=== PATIENT | female | born 1940 | race Caucasian/White ===

== ENCOUNTER → 2018-04-21 09:44 | Outpatient (CLI) | payer MEDICARE, OTHER, SELFPAY ==
--- NOTE | 2018-04-21 | DI.MG.S_ITS ---
BILATERAL DIGITAL SCREENING MAMMOGRAM 3D/2D WITH CAD: 04/21/2018 CLINICAL: Routine screening. Family history of breast cancer. Comparison is made to exams dated: 03/30/2017 mammogram, 03/27/2016 mammogram - [facility], and 03/05/2015 mammogram - [facility]. The tissue of both breasts is heterogeneously dense. This may lower the sensitivity of mammography. Current study was also evaluated with a Computer Aided Detection (CAD) system. Bilateral breast implants are stable. No significant masses, calcifications, or other findings are seen in either breast. There has been no significant interval change. IMPRESSION: NEGATIVE There is no mammographic evidence of malignancy. A 1 year screening mammogram is recommended. This exam was interpreted at Station ID: [id number]. NOTE: For mammograms, a report in lay terms will be sent to the patient. Approximately 15% of breast malignancies will not be visualized mammographically. In the management of a palpable breast mass, a negative mammogram must not discourage biopsy of a clinically suspicious lesion. Electronically Signed By: Jorge correa/junior:04/21/2018 10:21:07 letter sent: Normal Exam ACR BI-RADS Category 1: Negative 3341F
== END ==
PROVIDERS: Family Provider Family Medicine; PCP Family Medicine; Visit Provider Family Medicine
DX: Z12.31 Encounter for screening mammogram for malignant neoplasm of breast (principal); Z80.3 Family history of malignant neoplasm of breast
CPT/HCPCS: 77063; 77067

== ENCOUNTER → 2018-05-30 06:49 | Outpatient (CLI) | payer MEDICARE, OTHER, SELFPAY ==
[2018-05-30 08:18] LABS: Add Manual Diff / Slide Review NO; Basophils Percent Auto 0.7 % (0-2); Eosinophils Percent Auto 3.3 % (2-4); Hematocrit 40.5 % (36-46); Hemoglobin 14.1 g/dL (12.0-16.0); Lymphocytes Percent Auto 35.1 % (25-40); Mean Corpuscular HGB Conc 34.8 % (30-36); Mean Corpuscular Hemoglobin 30.3 PG (26-34); Mean Corpuscular Volume 87.1 fL (80-100); Monocytes Percent Auto 11.4 % (3-14); Neutrophils Absolute Auto 2500 /uL (3000-5900); Neutrophils Percent Auto 49.5 % (50-75); Platelet Count 229 X10^3/uL (150-400); Red Blood Cell Count 4.65 X10^6/uL (4.0-5.2); Red Cell Distribution Width 13.4 % (11.6-14.8)
[2018-05-30 08:59] LABS: Alanine Aminotransferase 22 IU/L (9-52); Albumin 3.9 g/dL (3.5-5.0); Albumin Globulin Ratio 1.3 (1.0-2.8); Alkaline Phosphatase 66 U/L (38-126); Aspartate Aminotransferase 27 IU/L (14-36); BUN Creatinine Ratio 21.4 (6-22); Bilirubin Total 0.8 mg/dL (0.2-1.3); Blood Urea Nitrogen 15 mg/dL (7-17); Calcium 9.3 mg/dL (8.4-10.2); Carbon Dioxide 31 mmol/L (22-32); Chloride 100 mmol/L (98-107); Cholesterol 184 mg/dL (140-199); Estimated Glomerular Filt Rate > 60.0 mL/min (>60); Globulin 3.1 g/dL (1.7-4.1); Glucose 95 mg/dL (80-110); HDL Cholesterol 65 mg/dL (40-60); HEMOLYSIS < 15 (0-50); LDL Cholesterol Calculated 103 mg/dL (<100); Potassium 4.4 mmol/L (3.4-5.1); Sodium 139 mmol/L (137-145); Triglycerides 79 mg/dL (35-150)
[2018-05-30 09:27] LABS: Thyroid Stimulating Hormone 0.52 uIU/mL (0.47-4.68)
== END ==
PROVIDERS: PCP Family Medicine; Visit Provider Family Medicine
DX: E78.2 Mixed hyperlipidemia (principal)
CPT/HCPCS: 36415; 80053; 80061; 84443; 85025

== ENCOUNTER → 2018-10-27 10:39 | Outpatient (CLI) | payer MEDICARE, OTHER, SELFPAY ==
--- NOTE | 2018-10-27 11:59 | PM.TREADMILL ---
Cardiac Stress Test Report Referral & Results Date Patient Seen: 10/27/18 Requesting provider: Ashwini Richter Indication: Chest pain Rest ECG: Unremarkable Procedure Note: Today following both written and verbal informed consent, the patient was exercised according to a standard Trent protocol. The patient exercised for a total of 9 min 0 sec achieving a maximum heart rate of 150. Patient's maximum systolic blood pressure was 180. This was an estimated 10.1 MET's. There was a tremendous amount of motion artifact while patient was actively exercising. This made absolutely impossible to evaluate ST segments while patient was moving. Upon immediate cessation of activity there is no evidence of ST segment changes. It did take approximately 90 sec for the artifact to completely dissipate after patient was returned to a supine position on the gurney and there is still no evidence of ST segment changes at that point Patient had normal heart rate blood pressure response to exercise Functional aerobic impairment was way way off the scale estimate her aerobic capacity to be equal to that of an active 41-year-old woman No dysrhythmias identified although artifact would have certainly interfered with ability to identify any cardiac dysrhythmias Impression: This is a low risk treadmill it worse. No clear evidence of ischemia and patient excellent exercise capacity in fact frankly amazing exercise capacity. Overall less clinical concern warrants I would call this normal without evidence of ischemia. If need be this test could be repeated with the administration of Cardiolite and perfusion imaging for increased specificity and sensitivity. Please note: Actual ECG tracings can be found in the PACS system.
== END ==
PROVIDERS: Visit Provider Family Medicine
DX: I20.9 Angina pectoris, unspecified (principal); R07.9 Chest pain, unspecified
CPT/HCPCS: 93016; 93017; 93018

== ENCOUNTER → 2019-04-25 09:36 | Outpatient (CLI) | payer MEDICARE, OTHER, SELFPAY ==
--- NOTE | 2019-04-25 | DI.MG.S_ITS ---
BILATERAL DIGITAL SCREENING MAMMOGRAM 3D/2D WITH CAD WITH AUGMENTATION: 04/25/2019 CLINICAL: Routine screening. Family history of breast cancer. Comparison is made to exams dated: 04/21/2018 mammogram, 03/30/2017 mammogram, and 03/27/2016 mammogram - [facility]. The tissue of both breasts is heterogeneously dense. This may lower the sensitivity of mammography. Current study was also evaluated with a Computer Aided Detection (CAD) system. Bilateral breast implants are stable. No significant masses, calcifications, or other findings are seen in either breast. There has been no significant interval change. IMPRESSION: NEGATIVE There is no mammographic evidence of malignancy. A 1 year screening mammogram is recommended. This exam was interpreted at Station ID: [id number]. NOTE: For mammograms, a report in lay terms will be sent to the patient. Approximately 15% of breast malignancies will not be visualized mammographically. In the management of a palpable breast mass, a negative mammogram must not discourage biopsy of a clinically suspicious lesion. Electronically Signed By: Steven german/junior:04/25/2019 11:02:13 letter sent: Normal Exam ACR BI-RADS Category 1: Negative 3341F
== END ==
PROVIDERS: Visit Provider Family Medicine
DX: Z12.31 Encounter for screening mammogram for malignant neoplasm of breast (principal); Z80.3 Family history of malignant neoplasm of breast
CPT/HCPCS: 77063; 77067

== ENCOUNTER → 2019-06-05 06:55 | Outpatient (CLI) | payer MEDICARE, OTHER, SELFPAY ==
[2019-06-05 09:13] LABS: Thyroid Stimulating Hormone < 0.02 uIU/mL (0.47-4.68)
== END ==
PROVIDERS: Visit Provider Family Medicine
DX: E03.9 Hypothyroidism, unspecified (principal)
CPT/HCPCS: 36415; 84443

== ENCOUNTER → 2020-01-12 06:47 | Outpatient (CLI) | payer MEDICARE, OTHER, SELFPAY ==
[2020-01-12 08:16] LABS: Add Manual Diff / Slide Review NO; Basophils Absolute Auto 0 /uL (0-100); Basophils Percent Auto 0.8 % (0-2); Eosinophils Absolute Auto 100 /uL (0-450); Eosinophils Percent Auto 3.2 % (2-4); Hematocrit 36.5 % (36-46); Hemoglobin 12.4 g/dL (12.0-16.0); Lymphocytes Absolute Auto 1600 /uL (1100-4500); Lymphocytes Percent Auto 36.2 % (25-40); Mean Corpuscular HGB Conc 34.1 % (30-36); Mean Corpuscular Hemoglobin 29.3 PG (26-34); Mean Corpuscular Volume 85.8 fL (80-100); Monocytes Absolute Auto 600 /uL (0-900); Neutrophils Absolute Auto 2100 /uL (1500-7000); Neutrophils Percent Auto 45.8 % (50-75); Platelet Count 296 X10^3/uL (150-400); Red Blood Cell Count 4.25 X10^6/uL (4.0-5.2); Red Cell Distribution Width 13.4 % (11.6-14.8); White Blood Cell Count 4.5 X10^3/uL (4.5-11.0)
[2020-01-12 08:27] LABS: Alanine Aminotransferase 16 IU/L (<35); Albumin 4.1 g/dL (3.5-5.0); Albumin Globulin Ratio 1.3 (1.0-2.8); Alkaline Phosphatase 89 U/L (38-126); Aspartate Aminotransferase 33 IU/L (14-36); BUN Creatinine Ratio 27.1 (6-22); Bilirubin Total 0.7 mg/dL (0.2-1.3); Blood Urea Nitrogen 19 mg/dL (7-17); Calcium 9.6 mg/dL (8.4-10.2); Carbon Dioxide 30 mmol/L (22-32); Chloride 103 mmol/L (98-107); Estimated Glomerular Filt Rate > 60.0 mL/min (>60); Globulin 3.2 g/dL (1.7-4.1); Glucose 104 mg/dL (80-110); HEMOLYSIS < 15 (0-50); Potassium 3.9 mmol/L (3.4-5.1); Sodium 140 mmol/L (137-145); Total Protein 7.3 g/dL (6.3-8.2)
[2020-01-12 10:57] LABS: Creatinine Urine Random 82.8 mg/dL
[2020-01-12 11:00] LABS: Microalbumi Creatinin Ratio Ur 44.6 ug/mg CR (<30); Microalbumin Urine Random 3.7 mg/dL (0-1.6)
[2020-01-12 15:16] LABS: Thyroid Stimulating Hormone 0.09 uIU/mL (0.47-4.68)
== END ==
PROVIDERS: Family Medicine; PCP Family Medicine; Referring Provider Family Medicine; Visit Provider Family Medicine
DX: I10 Essential (primary) hypertension (principal); E03.9 Hypothyroidism, unspecified
CPT/HCPCS: 36415; 80053; 82043; 82570; 84443; 85025

== ENCOUNTER → 2020-04-24 13:51 | Outpatient (CLI) | payer MEDICARE, OTHER, SELFPAY ==
[2020-04-24 16:00] LABS: Thyroid Stimulating Hormone 0.04 uIU/mL (0.47-4.68)
== END ==
PROVIDERS: PCP Family Medicine; Referring Provider Family Medicine; Visit Provider Family Medicine
DX: E03.9 Hypothyroidism, unspecified (principal)
CPT/HCPCS: 36415; 84443

== ENCOUNTER → 2020-05-31 09:14 | Outpatient (CLI) | payer MEDICARE, OTHER, SELFPAY ==
[2020-05-31 22:29] LABS: COVID19 Sendout Not Detected (Not Detect)
== END ==
PROVIDERS: PCP Family Medicine; Visit Provider Nurse Practitioner
DX: Z01.812 Encounter for preprocedural laboratory examination (principal)
CPT/HCPCS: 87635

== ENCOUNTER 2020-06-03 07:20 | Day surgery (SDC) | payer MEDICARE, OTHER, SELFPAY ==
[2020-06-03] VITALS (8 sets, daily range): BP systolic 137–160; BP diastolic 77–90; PULSE 93–104; RESP 10–16; TEMP 36.2–36.8; O2SAT 98–100; BMI 21.4
[2020-06-03] MEDS: LACTATED RINGERS 1,000 ML 200 ML IV (08:06)
--- NOTE | 2020-06-03 08:28 | PM.HP.1 ---
History of Present Illness History of Present Illness Date Patient Seen: 06/03/20 Time Patient Seen: 08:28 Chief complaint: [id number] Narrative: The patient presents for colorectal sreening. The previously normal colonoscopy greater than 10 years ago. No personal or family history of colon cancer. On further history denies any recent gastrointestinal symptoms. No nausea, vomiting, abdominal pain, loss of appetite, unexplained weight loss, change in bowel habits, diarrhea, constipation, melena, hematochezia, or bright red blood per rectum. Patient History Medical History Cataracts, bilateral (Chronic ~2009) Depression (Chronic ~2013) Essential hypertension (Chronic) Glaucoma (Chronic ~1989) Headache (Chronic ~2013) History of urinary incontinence (Chronic ~1997) Hypothyroidism (Chronic) Osteoporosis (Chronic ~2009) Seasonal allergies (Chronic ~2009) Thyroid nodule (Chronic ~1989) Tinnitus (Chronic ~1989) Surgical History Anesthesia (Resolved) History of bladder surgery (Resolved) Family & Social History Family History Mother Breast cancer Heart disease Social History: household members none lives independently Yes caregiver/support person No Tobacco & Substance use: Smoking Status Never smoker alcohol intake never Substance Use Type does not use Meds Home Medications and Allergies Home Medications Medication Instructions Recorded Confirmed Type ASPIRIN (Aspir-Low) 81 mg PO QDAY #0 05/25/13 06/03/20 History Restasis 1 drp OPHTH BID #0 10/16/16 06/03/20 History Disabled Parking Permit ea #1 06/10/17 06/29/19 Rx pravastatin 20 mg tablet 20 mg PO HS #90 tab 08/28/19 06/03/20 Rx amitriptyline 25 mg tablet 25 mg PO HS #90 tab 03/21/20 06/03/20 Rx amlodipine 5 mg tablet 5 mg PO QDAY #90 tab 03/21/20 06/03/20 Rx levothyroxine 88 mcg tablet 88 mcg PO QAM #90 tab 05/03/20 06/03/20 Rx Allergies Allergy/AdvReac Type Severity Reaction Status Date / Time No Known Drug Allergies Allergy Verified 06/03/20 07:47 Review of Systems Review of Systems Narrative: A 10 point review of systems is negative except as noted in the HPI Exam Vital Signs (past 8 hours): - 06/03/20 07:49 Temperature 98.3 F Pulse Rate 104 H Respiratory Rate 16 Blood Pressure 157/82 H Pulse Oximetry 99 Oxygen Delivery Method Room Air Narrative Exam Narrative: General-no acute distress, elderly woman HEENT-moist mucous membranes, no scleral icterus Neck-supple, no lymphadenopathy Chest- non labored respirations, clear to auscultation bilaterally Cardiac-regular rate no peripheral edema Abdomen-soft, nontender, non distended Extremities-warm, well perfused Neurological-alert and oriented, no focal deficits Assessment & Plan Assessment and plan (1) Screening for colon cancer: Status: Acute Assessment & Plan narrative: The patient requires colorectal screening and colonoscopy is recommended. Technical details were discussed. Risks, benefits, alternatives explained. Risks including but not limited to myocardial infarction, aspiration, bleeding, pain, missed lesion, incomplete examination, need for further radiographic studies, colonic perforation, and need for major abdominal surgery were discussed. All questions were answered to their satisfaction, and they are in agreement with this plan. COVID-19 COVID-19 status: Negative Result date/Date tested (Pos, Neg/Pending): 05/31/20
[2020-06-03] MEDS: fentaNYL 250 MCG/5 ML INJ IV ×3 (08:33→08:41)
[2020-06-03] MEDS: MIDAZOLAM 5 MG/5 ML VIAL IV ×3 (08:33→08:41)
--- NOTE | 2020-06-03 08:56 | PM.OP.ENDO ---
Operative Date/Time/Diagnoses Date of procedure: 06/03/20 Time of procedure: 08:56 Pre-op diagnosis: Screening colonoscopy Post-op diagnosis: same Procedure & Clinicians Study performed: Colonoscopy Same procedure as scheduled: Yes Indications: 79-year-old woman who last colonoscopy greater than 10 years ago presents for routine screening Surgeon: Jann Menjivar Procedure Notes SCOAP/Timeout: Performed Procedure in detail: Patient placed in left lateral decubitus position. Time out was performed. Procedural sedation was administered with Versed and Fentanyl. A rectal exam demonstrated no external hemorrhoids no internal masses. Colonoscopy scope was placed into the rectum and advanced through the colon to the cecum. The ileocecal valve was identified. The scope was then slowly withdrawn examining colon thoroughly in all directions. The colonoscopy was notable for the following 1. Extensive sigmoid diverticulosis 2. No masses or polyps 3. Quality of prep fair Scope withdrawal time: 6 Sedation minutes: 22 Findings: diverticulosis Specimen(s): none sent Complications: none Impression: Diverticulosis Post-procedure Recommendations: Colonscopy in 10 years and High fiber diet Disposition: same day surgery
== END 2020-06-03 10:10 | disposition home or self-care (01) ==
PROVIDERS: PCP Family Medicine; Referring Provider Surgery; Visit Provider Surgery
PROC: 0DJD8ZZ Inspection of Lower Intestinal Tract, Via Natural or Artificial Opening Endoscopic (ICD-10-PCS; CPT 45378; principal; 2020-06-03 08:30)
DX: Z12.11 Encounter for screening for malignant neoplasm of colon (principal); I10 Essential (primary) hypertension; E03.9 Hypothyroidism, unspecified; K57.30 Diverticulosis of large intestine without perforation or abscess without bleeding
CPT/HCPCS: G0121; 99152; J2250; J3010

== ENCOUNTER → 2020-06-12 15:36 | Outpatient (CLI) | payer MEDICARE, OTHER, SELFPAY ==
--- NOTE | 2020-06-12 | DI.MG.S_ITS ---
BILATERAL DIGITAL SCREENING MAMMOGRAM 3D/2D WITH CAD WITH AUGMENTATION: 06/12/2020 CLINICAL: Routine screening. Family history of breast cancer. Comparison is made to exams dated: 04/25/2019 mammogram, 04/21/2018 mammogram, and 03/30/2017 mammogram - [facility]. The tissue of both breasts is heterogeneously dense. This may lower the sensitivity of mammography. Current study was also evaluated with a Computer Aided Detection (CAD) system. Bilateral breast implants are stable. No significant masses, calcifications, or other findings are seen in either breast. There has been no significant interval change. IMPRESSION: NEGATIVE There is no mammographic evidence of malignancy. A 1 year screening mammogram is recommended. This exam was interpreted at Station ID: [id number]. NOTE: For mammograms, a report in lay terms will be sent to the patient. Approximately 15% of breast malignancies will not be visualized mammographically. In the management of a palpable breast mass, a negative mammogram must not discourage biopsy of a clinically suspicious lesion. Electronically Signed By: Suzan ruiz/junior:06/12/2020 17:50:58 letter sent: Normal Exam ACR BI-RADS Category 1: Negative 3341F
== END ==
PROVIDERS: PCP Family Medicine; Referring Provider Family Medicine; Visit Provider Family Medicine
DX: Z12.31 Encounter for screening mammogram for malignant neoplasm of breast (principal); Z80.3 Family history of malignant neoplasm of breast
CPT/HCPCS: 77063; 77067

== ENCOUNTER → 2020-06-26 10:48 | Outpatient (CLI) | payer MEDICARE, OTHER, SELFPAY ==
[2020-06-26 13:12] LABS: Thyroid Stimulating Hormone < 0.015 uIU/mL (0.47-4.68)
== END ==
PROVIDERS: PCP Family Medicine; Referring Provider Family Medicine; Visit Provider Family Medicine
DX: E03.9 Hypothyroidism, unspecified (principal)
CPT/HCPCS: 36415; 84443

== ENCOUNTER → 2020-08-26 15:13 | Outpatient (CLI) | payer MEDICARE, OTHER, SELFPAY ==
[2020-08-26 17:09] LABS: Thyroid Stimulating Hormone 1.74 uIU/mL (0.47-4.68)
== END ==
PROVIDERS: PCP Family Medicine; Referring Provider Family Medicine; Visit Provider Family Medicine
DX: E03.9 Hypothyroidism, unspecified (principal)
CPT/HCPCS: 36415; 84443

== ENCOUNTER → 2021-08-18 06:51 | Outpatient (CLI) | payer MEDICARE, OTHER, SELFPAY ==
[2021-08-18 08:41] LABS: Alanine Aminotransferase 13 IU/L (<35); Albumin Globulin Ratio 1.3 (1.0-2.8); Alkaline Phosphatase 75 U/L (38-126); Aspartate Aminotransferase 34 IU/L (14-36); BUN Creatinine Ratio 27.4 (6-22); Bilirubin Total 0.5 mg/dL (0.2-1.3); Blood Urea Nitrogen 23 mg/dL (7-17); Calcium 9.5 mg/dL (8.4-10.2); Carbon Dioxide 31 mmol/L (22-32); Chloride 104 mmol/L (98-107); Cholesterol 179 mg/dL (140-199); Estimated Glomerular Filt Rate > 60.0 mL/min (>60); Glucose 93 mg/dL (80-110); HDL Cholesterol 72 mg/dL (40-60); HEMOLYSIS < 15 (0-50); LDL Cholesterol Calculated 94 mg/dL (<100); Potassium 5.1 mmol/L (3.4-5.1); Sodium 139 mmol/L (137-145); Triglycerides 67 mg/dL (35-150)
[2021-08-18 09:00] LABS: TSH w/ Reflex to FT4 3.27 uIU/mL (0.47-4.68)
[2021-08-18 09:48] LABS: Creatinine Urine Random 192.8 mg/dL
[2021-08-18 09:51] LABS: Microalbumi Creatinin Ratio Ur 28.5 ug/mg CR (<30); Microalbumin Urine Random 5.5 mg/dL (0-1.6)
== END ==
PROVIDERS: PCP Family Medicine; Referring Provider Family Medicine; Visit Provider Family Medicine
DX: I10 Essential (primary) hypertension (principal); E03.9 Hypothyroidism, unspecified
CPT/HCPCS: 36415; 80053; 80061; 82043; 82570; 84443

== ENCOUNTER → 2021-09-03 08:18 | Outpatient (CLI) | payer MEDICARE, OTHER, SELFPAY ==
--- NOTE | 2021-09-03 | DI.MG.S_ITS ---
BILATERAL DIGITAL SCREENING MAMMOGRAM 3D/2D WITH CAD WITH AUGMENTATION: 09/03/2021 CLINICAL: Routine screening. Family history of breast cancer. Comparison is made to exams dated: 06/12/2020 mammogram, 04/25/2019 mammogram, and 04/21/2018 mammogram - [facility]. The tissue of both breasts is heterogeneously dense. This may lower the sensitivity of mammography. Current study was also evaluated with a Computer Aided Detection (CAD) system. Bilateral breast implants are stable. No significant masses, calcifications, or other findings are seen in either breast. There has been no significant interval change. IMPRESSION: NEGATIVE There is no mammographic evidence of malignancy. A 1 year screening mammogram is recommended. This exam was interpreted at Station ID: [id number]. NOTE: For mammograms, a report in lay terms will be sent to the patient. Approximately 15% of breast malignancies will not be visualized mammographically. In the management of a palpable breast mass, a negative mammogram must not discourage biopsy of a clinically suspicious lesion. Electronically Signed By: Jorge correa/junior:09/03/2021 09:16:39 letter sent: Normal Exam ACR BI-RADS Category 1: Negative 3341F
== END ==
PROVIDERS: PCP Family Medicine; Referring Provider Family Medicine; Visit Provider Family Medicine
DX: Z12.31 Encounter for screening mammogram for malignant neoplasm of breast (principal); Z80.3 Family history of malignant neoplasm of breast
CPT/HCPCS: 77063; 77067

== ENCOUNTER → 2022-06-10 06:45 | Outpatient (CLI) | payer MEDICARE, OTHER, SELFPAY ==
[2022-06-10 08:00] LABS: Add Manual Diff / Slide Review NO; Basophils Absolute Auto 0 /uL (0-100); Eosinophils Absolute Auto 100 /uL (0-450); Eosinophils Percent Auto 2.3 % (2-4); Hematocrit 39.8 % (36-46); Hemoglobin 13.5 g/dL (12.0-16.0); Lymphocytes Absolute Auto 1200 /uL (1100-4500); Lymphocytes Percent Auto 28.9 % (25-40); Mean Corpuscular HGB Conc 33.8 % (30-36); Mean Corpuscular Hemoglobin 28.4 PG (26-34); Mean Corpuscular Volume 84.1 fL (80-100); Monocytes Absolute Auto 400 /uL (0-900); Monocytes Percent Auto 10.3 % (3-14); Neutrophils Absolute Auto 2500 /uL (1500-7000); Neutrophils Percent Auto 57.5 % (50-75); Platelet Count 262 X10^3/uL (150-400); Red Blood Cell Count 4.73 X10^6/uL (4.0-5.2); Red Cell Distribution Width 15.3 % (11.6-14.8); White Blood Cell Count 4.3 X10^3/uL (4.5-11.0)
[2022-06-10 08:05] LABS: Alanine Aminotransferase 12 IU/L (<35); Albumin 4.2 g/dL (3.5-5.0); Albumin Globulin Ratio 1.4 (1.0-2.8); Alkaline Phosphatase 75 U/L (38-126); Aspartate Aminotransferase 30 IU/L (14-36); BUN Creatinine Ratio 16.3 (6-22); Bilirubin Total 0.8 mg/dL (0.2-1.3); Blood Urea Nitrogen 13 mg/dL (7-17); Calcium 9.4 mg/dL (8.4-10.2); Carbon Dioxide 29 mmol/L (22-32); Chloride 101 mmol/L (98-107); Cholesterol 198 mg/dL (140-199); Estimated Glomerular Filt Rate > 60 mL/min (>60); Globulin 2.9 g/dL (1.7-4.1); Glucose 91 mg/dL (80-110); HDL Cholesterol 76 mg/dL (40-60); HEMOLYSIS < 15 (0-50); LDL Cholesterol Calculated 107 mg/dL (<100); Potassium 4.6 mmol/L (3.4-5.1); Sodium 136 mmol/L (137-145); Total Protein 7.1 g/dL (6.3-8.2); Triglycerides 76 mg/dL (35-150)
[2022-06-10 08:35] LABS: TSH w/ Reflex to FT4 6.91 uIU/mL (0.47-4.68)
[2022-06-10 10:03] LABS: Creatinine Urine Random 164.9 mg/dL
[2022-06-10 10:07] LABS: Microalbumi Creatinin Ratio Ur 17.5 ug/mg CR (<30); Microalbumin Urine Random 2.9 mg/dL (0-1.6)
[2022-06-11 03:23] LABS: Free T4, Direct Thyroxine 1.45 ng/dL (0.78-2.19)
== END ==
PROVIDERS: PCP Family Medicine; Referring Provider Family Medicine; Visit Provider Family Medicine
DX: E03.9 Hypothyroidism, unspecified (principal); E78.5 Hyperlipidemia, unspecified; I10 Essential (primary) hypertension
CPT/HCPCS: 36415; 80053; 80061; 82043; 82570; 84439; 84443; 85025

== ENCOUNTER → 2022-08-17 06:43 | Outpatient (CLI) | payer MEDICARE, OTHER, SELFPAY ==
[2022-08-17 08:49] LABS: Thyroid Stimulating Hormone 0.536 uIU/mL (0.47-4.68)
== END ==
PROVIDERS: PCP Family Medicine; Referring Provider Family Medicine; Visit Provider Family Medicine
DX: E03.9 Hypothyroidism, unspecified (principal)
CPT/HCPCS: 36415; 84443

== ENCOUNTER → 2022-09-10 13:56 | Outpatient (CLI) | payer MEDICARE, OTHER, SELFPAY ==
--- NOTE | 2022-09-10 13:57 | DI.MG.S_ITS ---
BILATERAL DIGITAL SCREENING MAMMOGRAM 3D/2D WITH CAD WITH AUGMENTATION: 09/10/2022 CLINICAL: Routine screening. Family history of breast cancer. Comparison is made to exams dated: 09/03/2021 mammogram, 06/12/2020 mammogram, and 04/25/2019 mammogram - [facility]. Both breasts are heterogeneously dense, which may obscure small masses (category c / 51-75% glandular tissue). Current study was also evaluated with a Computer Aided Detection (CAD) system. Bilateral breast implants are stable. No significant masses, calcifications, or other findings are seen in either breast. There has been no significant interval change. IMPRESSION: NEGATIVE There is no mammographic evidence of malignancy. A 1 year screening mammogram is recommended. Based on the Tyrer Cuzick model (a risk assessment model) the patient's lifetime risk is 2.0% and her 10 year risk is 0.0%. According to the ACR, ACS, and NCCN guidelines, an annual breast MRI exam along with mammogram is recommended if the patient's lifetime risk is 20% or greater. This exam was interpreted at Station ID: [id number]. NOTE: For mammograms, a report in lay terms will be sent to the patient. Approximately 15% of breast malignancies will not be visualized mammographically. In the management of a palpable breast mass, a negative mammogram must not discourage biopsy of a clinically suspicious lesion. Electronically Signed By: Efrain Castellanos M.D., jr/junior:09/10/2022 14:45:20 letter sent: Normal Exam ACR BI-RADS Category 1: Negative 3341F
== END ==
PROVIDERS: PCP Family Medicine; Referring Provider Family Medicine; Visit Provider Family Medicine
DX: Z12.31 Encounter for screening mammogram for malignant neoplasm of breast (principal); Z80.3 Family history of malignant neoplasm of breast
CPT/HCPCS: 77063; 77067

== ENCOUNTER 2022-09-12 13:59 | Emergency (ER) | payer MEDICARE, OTHER, SELFPAY ==
[2022-09-12 14:04] VITALS: BP 200/90; PULSE 85; RESP 22; TEMP 36.6; O2SAT 99; BMI 21.2
--- NOTE | 2022-09-12 14:14 | DI.RAD.S_ITS ---
PROCEDURE: XR WRIST LT MIN 3V INDICATIONS: fall/pain TECHNIQUE: 4 views of the wrist were acquired. COMPARISON: Located Within [facility], CT, CT CERVICAL SPINE WO CON, 09/12/2022, 14:50. Located Within [facility], CT, CT HEAD/BRAIN WO CON, 09/12/2022, 14:50. FINDINGS: Bones: There is a fracture of the distal radius, along the radial aspect, with intra-articular involvement. The accompanying ulnar styloid fracture is seen. No additional fractures are detected. Generalized relatively prominent degenerative changes are seen. Scaphoid view: No navicular fractures are seen. Soft tissues: No suspicious soft tissue calcifications. IMPRESSION: Distal radius fracture, with intra-articular involvement. Dictated by: Win Allan M.D. on 09/12/2022 at 14:45 Approved by: Win Allan M.D. on 09/12/2022 at 14:47
--- NOTE | 2022-09-12 14:14 | DI.RAD.S_ITS ---
PROCEDURE: XR HAND RT MIN 3V INDICATIONS: fall/pain TECHNIQUE: 3 views of the hand(s) acquired. COMPARISON: [facility], CT, CT CERVICAL SPINE WO CON, 09/12/2022, 14:50. [facility], CT, CT HEAD/BRAIN WO CON, 09/12/2022, 14:50. [facility], CR, XR WRIST LT MIN 3V, 09/12/2022, 14:35. FINDINGS: Bones: No fractures or dislocations. Carpal bones are normally aligned. No suspicious bony lesions. Advanced degenerative change can be seen of the carpus. Generalized osteopenia can be seen. Soft tissues: No suspicious soft tissue calcifications. IMPRESSION: No displaced fracture of the right hand can be seen. 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 Dictated by: Win Allan M.D. on 09/12/2022 at 14:47 Approved by: Win Allan M.D. on 09/12/2022 at 14:48
--- NOTE | 2022-09-12 14:17 | DI.CT.S_ITS ---
PROCEDURE: CT CERVICAL SPINE WO CON INDICATIONS: fall/hit head TECHNIQUE: Noncontrast 3 mm thick sections acquired from the skull base to the T4 level. Sagittal and coronal reformats were then constructed. For radiation dose reduction, the following was used: automated exposure control, adjustment of mA and/or kV according to patient size. COMPARISON: [facility], CT, CT HEAD/BRAIN WO CON, 09/12/2022, 14:50. [facility], CR, XR HAND RT MIN 3V, 09/12/2022, 14:35. [facility], CR, XR WRIST LT MIN 3V, 09/12/2022, 14:35. FINDINGS: Image quality: This examination is somewhat limited by quantum mottle artifact. Bones: No fractures or dislocations. Visualized superior ribs are intact. Focal degenerative change is seen involving the C1-C2 interface anteriorly. There is [id number] disc space narrowing seen at C2-C3. There is moderate to severe disc space narrowing seen at C3-C4 and C4-C5. At C5-C6, there is severe disc space narrowing, with a degree of vertebral body fusion. Moderate to severe disc space narrowing is seen at C6-C7 and C7-T1. Soft tissues: Prevertebral soft tissues are normal in thickness. No paravertebral hematomas. No apical pneumothoraces. Apparent scarring can be seen at the right lung apex. IMPRESSION: Negative for acute fracture. Prominent lower cervical spine degenerative changes are seen. Dictated by: Win Allan M.D. on 09/12/2022 at 14:50 Approved by: Win Allan M.D. on 09/12/2022 at 14:52
--- NOTE | 2022-09-12 14:17 | DI.CT.S_ITS ---
PROCEDURE: CT HEAD/BRAIN WO CON INDICATIONS: fall/hit head TECHNIQUE: Noncontrast 4.5 mm thick angled axial sections acquired from the foramen magnum to the vertex, with coronal and sagittal reformats. For radiation dose reduction, the following was used: automated exposure control, adjustment of mA and/or kV according to patient size. COMPARISON: None. FINDINGS: Image quality: Excellent. CSF spaces: Basal cisterns are patent. No extra-axial fluid collections. The ventricles are symmetric in size and shape. Brain: No intracranial bleeds or masses. There is cerebral volume loss for age, with resultant ventricular and sulcal prominence. There are periventricular and deep white matter chronic small vessel ischemic changes. There is intracranial internal carotid artery atherosclerosis. Skull and face: Calvarium and visualized facial bones appear intact, without suspicious lesions. Sinuses: Visualized sinuses and mastoids are clear. IMPRESSION: No intracranial hemorrhage or other acute intracranial abnormality. Dictated by: Tristan Faye M.D. on 09/12/2022 at 15:38 Approved by: Tristan Faye M.D. on 09/12/2022 at 15:43
[2022-09-12 15:54] VITALS: BP 205/95; PULSE 60; RESP 18; O2SAT 99
[2022-09-12 15:56] VITALS: BP 205/95; PULSE 78; O2SAT 100
[2022-09-12 16:00] VITALS: BP 192/95; O2SAT 99
[2022-09-12] MEDS: ONDANSETRON 4 MG ODT SL (16:17)
[2022-09-12] MEDS: HYDROCODONE/ACET 5/325 TABLET 2 TAB PO (16:18)
--- NOTE | 2022-09-12 16:46 | ED.TRAUMA ---
HPI - Trauma General Chief Complaint: Extremity Injury, Upper Stated Complaint: sent by [facility] fall broken wrist Time Seen by Provider: 09/12/22 16:12 Source: patient Mode of arrival: Ambulatory Limitations: no limitations History of Present Illness HPI narrative: This is an 81-year-old female on aspirin daily with history of hypertension, dyslipidemia and hypertension. [facility] on divot in the sidewalk. Patient states she fell forward she on left wrist and has some right thumb. Patient denies loss of consciousness denies any active neck or back pain. No chest pain or shortness of breath denies any dizziness. No nausea or vomiting. No numbness or tingling. She describes pain in her with patient has some pain in thumb but also states good movement there. She is unsure of her tetanus status. She denies any other blood thinners. She normally walks this route every day and is usually cognizant irregular and states she just forgot. Patient states someone helped her up off the ground after she fell and she ambulated to the post office. Related Data Home Medications Medication Instructions Recorded Confirmed ASPIRIN (Aspir-Low) 81 mg PO QDAY ##0 05/25/13 06/24/22 cyclosporine 0.05 % eye drops in a 1 drp OPHTH BID ##0 10/16/16 06/24/22 dropperette (Restasis) Previous Rx's Medication Instructions Recorded famotidine 40 mg tablet See Rx Instructions .Route 03/30/22 .COMPLEX #100 tabs amlodipine 5 mg tablet See Rx Instructions .Route 05/13/22 .COMPLEX #100 tabs pravastatin 20 mg tablet See Rx Instructions .Route 05/13/22 .COMPLEX #100 tabs fluticasone propionate 50 See Rx Instructions .Route 06/24/22 mcg/actuation nasal .COMPLEX #48 grams spray,suspension levothyroxine 88 mcg tablet See Rx Instructions .Route 06/24/22 .COMPLEX #30 tabs hydrocodone 5 mg-acetaminophen 325 1 tab PO Q6H PRN pain #14 tabs 09/12/22 mg tablet Allergies Allergy/AdvReac Type Severity Reaction Status Date / Time No Known Drug Allergies Allergy Verified 09/12/22 13:34 Review of Systems Review of Systems ROS Unobtainable: All systems reviewed & are unremarkable except as noted in HPI and below Patient History Medical History Cataracts, bilateral (~2009) Depression (~2013) Essential hypertension Glaucoma (~1989) Headache (~2013) History of urinary incontinence (~1997) Hypothyroidism Osteoporosis (~2009) Raynauds syndrome Seasonal allergies (~2009) Thyroid nodule (~1989) Tinnitus (~1989) Surgical History Anesthesia History of bladder surgery Family History Mother Breast cancer Heart disease Social History marital status: number of children: 2 household members: none lives independently: Yes caregiver/support person: No housing: house Smoking Status: Never smoker second hand exposure: No alcohol intake: never substance use type: does not use Smoking Status: Never smoker Substance Use Type: does not use Exam Narrative Exam Narrative: GEN: Patient appears in mild distress. HEAD: Patient has superficial laceration/abrasion which is non gapping when pressure is applied, no raccoon/Potter sign. NECK: Nontender, painless range of motion, trachea midline Negative for Nexus criteria, there is no midline line tenderness, distracting injury, altered mental status, neuro deficit, recent EtOH. EYES: PERRLA, EOMI ENT: External inspection normal, trachea is midline, TM's are normal no hemotypanum, Nares are clear, no septal hematoma, no dental or oral injury, airway is normal and with normal occlusion, No bony tenderness RESP: Chest is nontender and has symmetric movement, no ecchymosis, breath sounds are normal no crackles, wheezes or rales CVS: Heart sounds are normal, no murmur noted, No JVD. ABG/GI: Nontender, soft, normal bowel sounds, no distention, no organomegaly, pelvic rock is negative NEURO: Oriented AOx3, neuro is grossly intact, sensation and motor is normal all 4 extremities moving, cranial nerves II through XII are intact, GCS is 15 PSYCH: Normal mood and affect SKIN: Intact except as above, warm and dry, no crepitus and without decubitus BACK: No CVA tenderness, no vertebral tenderness, no step-off's, no crepitus EXT: Patient has some bruising of the right thumb but full range of motion nontender to palpation, patient's left wrist has tenderness over the wrist she has movement but is painful for flexion extension of the left wrist. Swelling of the left hand all rings have been removed. Full range of motion of fingers. Cap refill is intact in all 10 fingers. Hips are nontender, no pedal edema, normal color and temperature, normal range of motion of extremities with normal tendon exam, 2+ pulses in all four extremities Initial Vital Signs Initial Vital Signs: Vital Signs Temperature 97.8 F 09/12/22 14:04 Pulse Rate 85 09/12/22 14:04 Respiratory Rate 22 09/12/22 14:04 Blood Pressure 200/90 H 09/12/22 14:04 Pulse Oximetry 99 09/12/22 14:04 Oxygen Delivery Method 09/12/22 14:[address] Head Rule Patient on blood thinners: Yes Age greater or equal to 65 years: Yes GCS [place] coma scale eye opening: Spontaneous Rosmery coma scale verbal response: Orientated Rosmery coma scale motor response: Obey commands [place] coma scale total score: 15 Nexus Score for C-Spine Focal Neurologic deficit present: No Midline spinal tenderness present: No Altered level of conciousness present: No Intoxication present: No Distracting Injury Present: No Nexus Criteria for C-spine: 0 Course Orders Ordered: ED Orders 09/12/22 14:14 XR hand RT min 3V Stat XR wrist LT min 3V Stat 09/12/22 14:17 CT cervical spine wo con Stat CT head/brain wo con Stat Discontinued Medications Hydrocodone Bitart/Acetaminophen (Hydrocodone/Acet 5/325 Tablet) 2 tab PO NOW ONE Stop: 09/12/22 16:13 Last Admin: 09/12/22 16:18 Dose: 2 tab Documented By: BEBA Diphtheria/Tetanus/Acell Pertussis (Tet,Diph,Pertuss(Acell),Vac/Pf 0.5 Ml Syringe) 0.5 ml IM .ONCE ONE Stop: 09/12/22 17:01 Last Admin: 09/12/22 17:06 Dose: 0.5 ml Documented By: BEBA(2) Ondansetron HCl (Ondansetron 4 Mg Odt) 4 mg SL NOW ONE Stop: 09/12/22 16:13 Last Admin: 09/12/22 16:17 Dose: 4 mg Documented By: BEBA Vital Signs Vital signs: Vital Signs - 8 hr 09/12/22 14:04 09/12/22 15:54 09/12/22 15:56 Temperature 97.8 F Pulse Rate 85 60 78 Respiratory Rate 22 18 Blood Pressure 200/90 H 205/95 H Pulse Oximetry 99 99 100 Oxygen Delivery Method Room Air 09/12/22 15:56 09/12/22 16:00 09/12/22 16:00 Temperature Pulse Rate Respiratory Rate Blood Pressure 205/95 H 192/95 H Pulse Oximetry 99 Oxygen Delivery Method 09/12/22 17:29 Temperature Pulse Rate 65 Respiratory Rate 18 Blood Pressure 170/80 H Pulse Oximetry 98 Oxygen Delivery Method Room Air MDM - Trauma Imaging Data CT scan - head: Radiologist's Impression: [address] [address] [address] Scan Report Signed Patient: Evelyn Valiente MR#: [id number] : 1940 Acct:[id number] Age/Sex: 81 / F Date of Service: 09/12/22 Loc: ED Accession Number: [id number] ?? Procedure: CT head/brain wo con Ordering Provider: Marisol Hager D.O. PROCEDURE:? CT HEAD/BRAIN WO CON ? INDICATIONS:? fall/hit head ? TECHNIQUE:? Noncontrast 4.5 mm thick angled axial sections acquired from the foramen magnum to the vertex, with coronal and sagittal reformats.? For radiation dose reduction, the following was used:? automated exposure control, adjustment of mA and/or kV according to patient size.? ? COMPARISON:? None. ? FINDINGS:? Image quality:? Excellent.? ? CSF spaces:? Basal cisterns are patent.? No extra-axial fluid collections.? The ventricles are symmetric in size and shape.? ? Brain:? No intracranial bleeds or masses.? There is cerebral volume loss for age, with resultant ventricular and sulcal prominence.? There are periventricular and deep white matter chronic small vessel ischemic changes.? There is intracranial internal carotid artery atherosclerosis.? ? Skull and face:? Calvarium and visualized facial bones appear intact, without suspicious lesions.? ? Sinuses:? Visualized sinuses and mastoids are clear.? ? IMPRESSION:? No intracranial hemorrhage or other acute intracranial abnormality. ? ? Dictated by: Tristan Faye M.D. on 09/12/2022 at 15:38 ? ? Approved by: Tristan Faye M.D. on 09/12/2022 at 15:43?? CT - cervical spine: Radiologist's Impression: [address] [address] [address] Scan Report Signed Patient: Evelyn Valinete MR#: [id number] : 1940 Acct:[id number] Age/Sex: 81 / F Date of Service: 09/12/22 Loc: ED Accession Number: [id number] ?? Procedure: CT cervical spine wo con Ordering Provider: Marisol Hager D.O. PROCEDURE:? CT CERVICAL SPINE WO CON ? INDICATIONS:? fall/hit head ? TECHNIQUE:? Noncontrast 3 mm thick sections acquired from the skull base to the T4 level.? Sagittal and coronal reformats were then constructed.? For radiation dose reduction, the following was used:? automated exposure control, adjustment of mA and/or kV according to patient size.? ? COMPARISON:? [facility], CT, CT HEAD/BRAIN WO CON, 09/12/2022, 14:50.? [facility], CR, XR HAND RT MIN 3V, 09/12/2022, 14:35.? [facility], CR, XR WRIST LT MIN 3V, 09/12/2022, 14:35. ? FINDINGS:? Image quality:? This examination is somewhat limited by quantum mottle artifact.? ? Bones:? No fractures or dislocations.? Visualized superior ribs are intact.? ? Focal degenerative change is seen involving the C1-C2 interface anteriorly.? There is [id number] disc space narrowing seen at C2-C3.? There is moderate to severe disc space narrowing seen at C3-C4 and C4-C5.? At C5-C6, there is severe disc space narrowing, with a degree of vertebral body fusion.? Moderate to severe disc space narrowing is seen at C6-C7 and C7-T1. ? Soft tissues:? Prevertebral soft tissues are normal in thickness.? No paravertebral hematomas.? No apical pneumothoraces.? Apparent scarring can be seen at the right lung apex. ? ? IMPRESSION:? Negative for acute fracture. ? Prominent lower cervical spine degenerative changes are seen.? Dictated by: Win Allan M.D. on 09/12/2022 at 14:50 ? ? Approved by: Win Allan M.D. on 09/12/2022 at 14:52? Extremity x-ray #1: Radiologist's Impression: [address] [address] XRay Report Signed Patient: Evelyn Valiente MR#: [id number] : 1940 Acct:[id number] Age/Sex: 81 / F Date of Service: 09/12/22 Loc: ED Accession Number: [id number] ?? Procedure: XR wrist LT min 3V Ordering Provider: Marisol Hager D.O. PROCEDURE:? XR WRIST LT MIN 3V ? INDICATIONS: fall/pain ? TECHNIQUE:? 4 views of the wrist were acquired.? ? COMPARISON:? [facility], CT, CT CERVICAL SPINE WO CON, 09/12/2022, 14:50.? [facility], CT, CT HEAD/BRAIN WO CON, 09/12/2022, 14:50. ? FINDINGS:? ? Bones:? There is a fracture of the distal radius, along the radial aspect, with intra-articular involvement.? The accompanying ulnar styloid fracture is seen. ? No additional fractures are detected.? Generalized relatively prominent degenerative changes are seen.? ? Scaphoid view:? No navicular fractures are seen. ? Soft tissues:? No suspicious soft tissue calcifications.? IMPRESSION:? Distal radius fracture, with intra-articular involvement. ? ? Dictated by: Win Allan M.D. on 09/12/2022 at 14:45 ? ? Approved by: Win Allan M.D. on 09/12/2022 at 14:47?? Extremity x-ray #2: Radiologist's Impression: [address] [address] XRay Report Signed Patient: Evelyn Valiente MR#: [id number] : 1940 Acct:[id number] Age/Sex: 81 / F Date of Service: 09/12/22 Loc: ED Accession Number: [id number] ?? Procedure: XR hand RT min 3V Ordering Provider: Marisol Hager D.O. PROCEDURE:? XR HAND RT MIN 3V ? INDICATIONS:? fall/pain ? TECHNIQUE:? 3 views of the hand(s) acquired.? ? COMPARISON:? [facility], CT, CT CERVICAL SPINE WO CON, 09/12/2022, 14:50.? [facility], CT, CT HEAD/BRAIN WO CON, 09/12/2022, 14:50.? [facility], CR, XR WRIST LT MIN 3V, 09/12/2022, 14:35. ? FINDINGS:? ? Bones:? No fractures or dislocations.? Carpal bones are normally aligned.? No suspicious bony lesions.? Advanced degenerative change can be seen of the carpus.? Generalized osteopenia can be seen. ? Soft tissues:? No suspicious soft tissue calcifications.? ? ? IMPRESSION:? No displaced fracture of the right hand can be seen. ? 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 ? ? Dictated by: Win Allan M.D. on 09/12/2022 at 14:47 ? ? Approved by: Win Allan M.D. on 09/12/2022 at 14:48?? MDM Narrative Medical decision making narrative: This is a 81-year-old female with mechanical ground level fall superficial laceration to the forehead that does not gape wound care was performed. Patient's blood pressure is improving she was pain head CT and C-spine are negative. Patient has pain in left wrist and right thumb. X-rays negative for the right, she is an intra-articular fracture of left wrist. Patient was placed in splint, neurovascularly intact and plan for follow-up with orthopedic surgery. Discharge Plan Departure Patient Disposition: Home Clinical Impression: Superficial abrasion, Distal radius fracture, left Clinical Impression: (Ruled Out): Cellulitis of finger Instructions: DI for Distal Radius Fracture Activity Restrictions/Additional Instructions: Follow-up with orthopedic surgery. Call for an appointment on Wednesday morning. You may continue home medications as prescribed. You may take Tylenol to a 1000 mg every 6 hours for Tichnor 1-2 tablets every 6 hours as needed for pain. Your maximum amount of Tylenol or acetaminophen in 24 hours is 4000 mg. This medication can make you sleepy do not drive, perform hazardous activities or make any major decisions while taking it. This medication will make you constipated please take a stool softener once to twice daily until stools are soft and regular. Prescription sent to [facility] in [place]. Splint Care: Keep splint clean and dry. Elevated affected body part to decrease swelling. OK to use ice pack on the affected body part. Use for 15-20 minutes each time, for 5-6x per day. If you develop worsening pain, numbness, tingling, discoloration of the affected body part, loosen the splint by loosening the BRANT wrap, and either see your doctor for an urgent re-assessment, or return to the Emergency Department. Return to the Emergency Department for any new or worsening symptoms. Please return for severe headaches, vision changes, new neck or back pain, chest pain or shortness of breath, passing out, persistent vomiting, rapidly worsening swelling of her arm or wrist, new numbness, weakness or tingling or other new or concerning symptoms. Prescriptions: New hydrocodone-acetaminophen 5-325 mg tablet 1 tab PO Q6H PRN (Reason: pain) Qty: 14 0RF No Action levothyroxine 88 mcg tablet See Rx Instructions .ROUTE .COMPLEX Qty: 30 3RF Dose Instruction: TAKE 1 TABLET BY MOUTH IN THE MORNING Rx Instructions: TAKE 1 TABLET BY MOUTH IN THE MORNING fluticasone propionate 50 mcg/actuation spray,suspension See Rx Instructions .ROUTE .COMPLEX Qty: 48 3RF Dose Instruction: USE 1 SPRAY IN BOTH NOSTRILS TWICE DAILY Rx Instructions: USE 1 SPRAY IN BOTH NOSTRILS TWICE DAILY ASPIRIN (Aspir-Low) 81 mg PO QDAY Qty: 0 Restasis 1 EACH dropperette 1 drp OPHTH BID Qty: 0 famotidine 40 mg tablet See Rx Instructions .ROUTE .COMPLEX Qty: 100 2RF Dose Instruction: TAKE 1 TABLET BY MOUTH DAILY Rx Instructions: TAKE 1 TABLET BY MOUTH DAILY amlodipine 5 mg tablet See Rx Instructions .ROUTE .COMPLEX Qty: 100 3RF Dose Instruction: TAKE 1 TABLET BY MOUTH DAILY Rx Instructions: TAKE 1 TABLET BY MOUTH DAILY pravastatin 20 mg tablet See Rx Instructions .ROUTE .COMPLEX Qty: 100 3RF Dose Instruction: TAKE 1 TABLET BY MOUTH AT BEDTIME Rx Instructions: TAKE 1 TABLET BY MOUTH AT BEDTIME Referrals: Tiana Hugo MD [Physician] - Ashwini Richter MD [Primary Care Provider] - Visit Report Forms: Patient Portal/API
[2022-09-12] MEDS: TET,DIPH,PERTUSS(ACELL),VAC/PF 0.5 ML SYRINGE IM (17:06)
[2022-09-12 17:29] VITALS: BP 170/80; PULSE 65; RESP 18; O2SAT 98
== END 2022-09-12 17:29 | disposition home or self-care (01) ==
PROVIDERS: Emergency Provider Emergency Medicine; PCP Family Medicine
DX: S52.502A Unspecified fracture of the lower end of left radius, initial encounter for closed fracture (principal); S00.01XA Abrasion of scalp, initial encounter; S09.90XA Unspecified injury of head, initial encounter; W10.1XXA Fall (on)(from) sidewalk curb, initial encounter; Z23 Encounter for immunization
CPT/HCPCS: 70450; 72125; 73110; 73130; 90471; 99284; 90715

== ENCOUNTER → 2022-12-23 06:59 | Outpatient (CLI) | payer MEDICARE, OTHER, SELFPAY ==
--- NOTE | 2022-12-23 07:01 | DI.ECHO.S_ITS ---
[facility]+ [facility] +---------+ : : [address] [address] : : : : [id number] : : : : Phone: [phone]+ Echocardiogram Report + + :Name: GIOVANNA TEJEDA Study Date: 12/23/2022 Height: 63 in : :[facility] ReadingLocation: Weight: 121 lb : : Gender: Female BSA: 1.6 m2 : :: 1940 Age: 82 yrs BP: 172/84 mmHg: :Reason For Study: HEART MURMUR : :Ordering Physician: MARTHA, : :JOVAN Valdez Performed By: Lyric Sutherland : :Referring: JOVAN THOMAS : + + Interpretation Summary The ejection fraction is estimated to be 60-65%. There is mild concentric left ventricular hypertrophy. There is mild aortic stenosis. There is mildly reduced leaflet mobility. The calculated aortic valve area is 1.3 cm2. There is mild tricuspid regurgitation. Procedure: A two-dimensional transthoracic echocardiogram with color flow and Doppler was performed. The study quality was technically adequate. There is no prior echocardiogram noted for this patient. The patient was in sinus rhythm with heart rates between 72-82 bpm during the exam. Left Ventricle: The left ventricle is normal in size. There is mild concentric left ventricular hypertrophy. The ejection fraction is estimated to be 60-65%. Left ventricular wall motion is normal. Right Ventricle: The right ventricle is normal in size and function. Atria: The left atrial size is normal. Right atrial size is normal. There is no Doppler evidence for an interatrial shunt. Mitral Valve: There is mild mitral annular calcification. The mitral valve leaflets are mildly calcified. There is trace mitral regurgitation. Aortic Valve: The aortic valve is moderately calcified. The aortic valve is trileaflet. There is mildly reduced leaflet mobility. There is mild aortic stenosis. The peak aortic velocity is 2.1 m/sec. The aortic valve mean gradient is 10 mmHg. The calculated aortic valve area is 1.3 cm2. No aortic regurgitation is present. Tricuspid Valve: The tricuspid valve is normal in structure and function. There is mild tricuspid regurgitation. Pulmonic Valve: The pulmonic valve leaflets are thin and pliable; valve motion is normal. There is trace pulmonic regurgitation. Great Vessels: The aortic root is normal size. The dimensions of the ascending aorta are normal. The IVC is of normal diameter and collapses greater than 50% with a sniff. This suggests a low right atrial pressure of 3 mm Hg. Pericardium/ Pleura There is no pericardial effusion. There is no pleural effusion. MMode/2D Measurements & Calculations LVIDd: 3.8 cm LVOT diam: 2.0 cm LVIDs: 2.4 cm Ao root diam: 3.0 cm FS: 37.9 % asc Aorta Diam: 2.8 cm IVSd: 0.95 cm Ao Arch Diam (Prox Trans): 2.2 cm LVPWd: 1.1 cm LV herrera. diameter/BSA (cm/m^2): 2.4 LV sys. diameter/BSA (cm/m^2): 1.5 LA A2 area: 16.3 cm2 RA long axis: 3.9 cm LA A4 area: 12.6 cm2 RA area: 10.7 cm2 LA length (vol): 4.6 cm RA vol: 24.4 ml LA vol: 38.2 ml RA : 15.6 ml/m2 LA vol index: 24.5 ml/m2 IVC diam: 1.7 cm RVD1 (basal): 3.1 cm RVD2 (mid): 2.7 cm TAPSE: 2.0 cm Doppler Measurements & Calculations Ao V2 max: 211.8 cm/sec LVOT Max Conrado: 85.2 cm/sec Ao V2 mean: 142.6 cm/sec LV V1 max P.9 mmHg Ao max P.9 mmHg LV V1 VTI: 21.3 cm Ao mean P.1 mmHg ANGY(I,D): 1.4 cm2 Ao V2 VTI: 46.7 cm ANGY(V,D): 1.3 cm2 sev ratio: 0.46 ANGY indexed to BSA (cm^2/m^2): 0.92 MV E max conrado: 103.9 cm/sec PA V2 max: 106.5 cm/sec MV A max conrado: 148.5 cm/sec PA V2 mean: 71.3 cm/sec MV E/A: 0.70 PA mean P.2 mmHg Med Peak E' Conrado: 4.0 cm/sec PA pr(Accel): 31.0 mmHg E/E' med: 25.8 Lat Peak E' Conrado: 4.6 cm/sec E/E' lat: 22.5 E/e' average: 24.1 MV dec time: 0.31 sec MVA(VTI): 1.9 cm2 MV V2 mean: 88.6 cm/sec SV(LVOT): 66.9 ml MV mean P.6 mmHg MV V2 VTI: 35.1 cm Reading Physician:03:07 PM
--- NOTE | 2022-12-23 07:01 | DI.RAD.S_ITS ---
PROCEDURE: FL BARIUM SWALLOW W SPEECH INDICATIONS: GERD; coughs when eating or drinking COMPARISON: TECHNIQUE: Examination was conducted in conjunction with speech pathology per standard protocol. In the lateral projection, filming was performed of the patient swallowing. AP projection filming may also be performed with patient swallowing. COMPARISON: [facility], , BARIUM SWALLOW WITH SPEECH, 12/10/2008, 10:17. FINDINGS: Function: The oral preparatory phase appears normal, with proper containment. The subsequent oral propulsive phase, pharyngeal phase, and esophageal phase of swallowing also appear normal with all proffered substances. No laryngotracheal penetration or aspiration. Vallecular pooling is seen throughout the exam. Morphology: No cricopharyngeal bar is identified. No cervical esophageal webs. No Zenker's diverticulum. No strictures. A calibrated barium tablet passes normally through the gastroesophageal junction. IMPRESSION: No laryngotracheal penetration or aspiration. Of note, please see independent report generated by the speech pathologist for further detailed specifics and characterization of the modified speech swallow study. Approved by: Tristan Veras M.D. on 12/23/2022 at 10:28
== END ==
PROVIDERS: PCP Family Medicine; Referring Provider Physician Assistant; Visit Provider Physician Assistant
DX: R01.1 Cardiac murmur, unspecified (principal); I10 Essential (primary) hypertension; K21.9 Gastro-esophageal reflux disease without esophagitis; R05.9 Cough, unspecified; I08.3 Combined rheumatic disorders of mitral, aortic and tricuspid valves
CPT/HCPCS: 74230; 92611; 93306

== ENCOUNTER → 2022-12-23 08:30 | Outpatient (CLI) | payer MEDICARE, OTHER, SELFPAY ==
--- NOTE | 2022-12-24 16:43 | ST.SWALLOW ---
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 Original Note: Visit Care Team Role Provider Type Ashwini Richter MD Primary Care Provider Physician Specialty: Family Practice Address: [address] [place] [address], [id number] Email: [email or web address] Elvia Flores [email or web address]-C Attending Provider Advanced [employer] Specialist Referring Provider Specialty: Medical Address: [address], [address] Email: [email or web address] Modified Barium Swallow Study CIRCUIT DESIGNER Modified Barium Swallow Study Start: 12/24/22 15:58 Freq: Status: Active Protocol: Document 12/23/22 15:59 LNK (Rec: 12/24/22 16:27 LNK [id number]) Modified Barium Swallow Study Total Time Visit Start Time 08:30 Visit Stop Time 09:00 Total Visit Minutes 30 Referral Referring Physician Elvia Flores Reason for Referral cough with eating and drinking Patient Information Identification Type ID Card Patient Positioning Position View Lat-A/P Imaging Lateral View Textures Administered Trials Presented Thin Liquid via Spoon,Thin Liquid via Cup,Regular Textures,Barium Tablet Oral Phase Source: MBSIMP (TM) (C) Bolus Specific Scoring Grid Lip Closure No Impairment (WNL) Tongue Control During Bolus Hold No Impairment (WNL) Bolus Prep/Mastication No Impairment (WNL) Bolus Transport/Lingual Motion No Impairment (WNL) A/P Lingual Propulsion Delay No Oral Residue No Impairment (WNL) Nasal Regurgitation No Additional Oral Phase Observations OME demonstrated labial, lingual and velar structures to be WLN for form and function. Oral phase was observed to be WNL with good mastication, bolus control and A-P transition. No oral residue was observed. DKE was noted to be WNL. Speech was clear and articulate. Pharyngeal Phase Source: MBSIMP (TM) (C) Bolus Specific Scoring Grid Delayed Initiation of Pharyngeal Swallow No: Swallow initiation WNL Soft Palate Elevation No Impairment (WNL) Tongue Base Strength/Range of Motion Mild Impairment Residue Along the Tongue Base Yes Clearance of Residue Along Tongue Base Mild Impairment Laryngeal Elevation No Impairment (WNL) Anterior Hyoid Movement WFL Vallecular Residue Yes Clearance of Vallecular Residue Mild Impairment Laryngeal Vestibular Closure WFL Pharyngeal Stripping Wave No Impairment (WNL) Posterior Pharyngeal Wall Residue Yes Clearance of Posterior Pharyngeal Wall Minimal Impairment Residue Upper Esophageal Sphincter Opening WFL Residue in the Pyriform Sinuses Yes Clearance of Residue in the Pyriform Minimal Impairment Sinuses Esophageal Clearance Upright Position WFL Pharyngoesophageal Backflow Observed No Additional Pharyngeal Phase Observations Hyolaryngeal elevation and movement, closure of the laryngeal vestibule were observed to be WFL. Epiglottic inversion was complete with the tip of the epiglottis curled against the posterior pharyngeal wall which contributed to pooling of contrast within the valeculla and pyriform sinuses. Subsequent dry swallows cleared pooled contrast. With solid trials there was more residue within the valeculla and pyriforms that required additional swallows to clear. No airway penetration or aspiration were observed. No coughing nor wet voicing noted . A/P View Textures Administered Trials Presented Thin Liquid via Spoon,Barium Tablet A/P View Observations Pharyngeal Contraction WFL Esophageal Function WFL Esophageal Clearance Upright Position No Impairment (WNL) Esophageal Observations Esophageal Function The esophagus was observed to empty in a timely manner. Clinical Impressions Dysphagia Type Normal swallow Findings The pt presented with no oropharyngeal dysphagia. She has c/o a persistent cough to her physician. She did note at the end of the evaluation that she feels her voice is croaky. 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 Presbylaryngis can result in symptoms of a croaky voice and persistent cough secondary to bilateral and medial vocal fold strength for addiction. Referral to an ENT is recommended. If vocal fold bowing is confirmed via ENT examination, vocal strengthening exercises/voice therapy is recommended to increase vocal fold strength, voice clarity, and reduction in persistent coughing. Patient Appropriate for Therapy No Recommendations Diet Comments No changes in diet recommended Aspiration Precautions Recommended Precautions Upright at 90 Degrees,Double Swallow Treatment Plan Recommended Referrals ENT Consult Compensatory Strategies Recommendations Sitting Upright (90 deg), Double Swallow
== END ==
PROVIDERS: PCP Family Medicine; Referring Provider Physician Assistant; Visit Provider Physician Assistant
DX: K21.9 Gastro-esophageal reflux disease without esophagitis (principal); R05.9 Cough, unspecified
CPT/HCPCS: 92611

== ENCOUNTER → 2023-06-23 06:43 | Outpatient (CLI) | payer MEDICARE, OTHER, SELFPAY ==
[2023-06-23 09:51] LABS: Alanine Aminotransferase 18 IU/L (<35); Albumin Globulin Ratio 1.5 (1.0-2.8); Alkaline Phosphatase 78 U/L (38-126); Aspartate Aminotransferase 30 IU/L (14-36); Blood Urea Nitrogen 15 mg/dL (7-17); Calcium 9.5 mg/dL (8.4-10.2); Carbon Dioxide 29 mmol/L (22-32); Chloride 99 mmol/L (98-107); Cholesterol 181 mg/dL (140-199); Estimated Glomerular Filt Rate > 60 mL/min (>60); Globulin 2.7 g/dL (1.7-4.1); Glucose 84 mg/dL (80-110); HDL Cholesterol 86 mg/dL (40-60); HEMOLYSIS < 15 (0-50); LDL Cholesterol Calculated 83 mg/dL (<100); Potassium 4.3 mmol/L (3.4-5.1); Sodium 134 mmol/L (137-145); Total Protein 6.7 g/dL (6.3-8.2); Triglycerides 60 mg/dL (35-150)
[2023-06-23 10:22] LABS: TSH w/ Reflex to FT4 0.45 uIU/mL (0.47-4.68)
[2023-06-23 10:45] LABS: Creatinine Urine Random 189.9 mg/dL
[2023-06-23 10:48] LABS: Microalbumi Creatinin Ratio Ur 30.5 ug/mg CR (<30); Microalbumin Urine Random 5.8 mg/dL (0-1.6)
[2023-06-23 10:56] LABS: Free T4, Direct Thyroxine 2.04 ng/dL (0.78-2.19)
== END ==
PROVIDERS: PCP Family Medicine; Referring Provider Family Medicine; Visit Provider Family Medicine
DX: I10 Essential (primary) hypertension (principal); E03.9 Hypothyroidism, unspecified
CPT/HCPCS: 36415; 80053; 80061; 82043; 82570; 84439; 84443

== ENCOUNTER → 2023-07-28 06:45 | Outpatient (CLI) | payer MEDICARE, OTHER, SELFPAY ==
[2023-07-28 08:31] LABS: TSH w/ Reflex to FT4 1.27 uIU/mL (0.47-4.68)
== END ==
PROVIDERS: PCP Family Medicine; Referring Provider Family Medicine; Visit Provider Family Medicine
DX: E03.9 Hypothyroidism, unspecified (principal)
CPT/HCPCS: 36415; 84443

== ENCOUNTER → 2023-09-21 08:00 | Outpatient (CLI) | payer MEDICARE, OTHER, SELFPAY ==
--- NOTE | 2023-09-21 | DI.MG.S_ITS ---
BILATERAL DIGITAL SCREENING MAMMOGRAM 3D/2D WITH CAD WITH AUGMENTATION: 09/21/2023 CLINICAL: Routine screening. Family history of breast cancer. Comparison is made to exams dated: 09/10/2022 mammogram, 09/03/2021 mammogram, and 06/12/2020 mammogram - [facility]. Both breasts are heterogeneously dense, which may obscure small masses (category c / 51-75% glandular tissue). Current study was also evaluated with a Computer Aided Detection (CAD) system. Bilateral breast implants are stable. No significant masses, calcifications, or other findings are seen in either breast. There has been no significant interval change. IMPRESSION: NEGATIVE There is no mammographic evidence of malignancy. A 1 year screening mammogram is recommended. Based on the Tyrer Cuzick model (a risk assessment model) the patient's lifetime risk is 1.6% and her 10 year risk is 0.0%. According to the ACR, ACS, and NCCN guidelines, an annual breast MRI exam along with mammogram is recommended if the patient's lifetime risk is 20% or greater. This exam was interpreted at Station ID: [id number]. NOTE: For mammograms, a report in lay terms will be sent to the patient. Approximately 15% of breast malignancies will not be visualized mammographically. In the management of a palpable breast mass, a negative mammogram must not discourage biopsy of a clinically suspicious lesion. Electronically Signed By: Tristan cruz/junior:09/21/2023 12:33:43 letter sent: Normal Exam ACR BI-RADS Category 1: Negative [id number]
== END ==
PROVIDERS: PCP Family Medicine; Referring Provider Family Medicine; Visit Provider Family Medicine
DX: Z12.31 Encounter for screening mammogram for malignant neoplasm of breast (principal); Z80.3 Family history of malignant neoplasm of breast
CPT/HCPCS: 77063; 77067

== ENCOUNTER → 2024-09-23 10:53 | Outpatient (CLI) | payer MEDICARE, OTHER, SELFPAY ==
--- NOTE | 2024-09-23 10:54 | DI.MG.S_ITS ---
BILATERAL DIGITAL SCREENING MAMMOGRAM 3D/2D WITH CAD WITH AUGMENTATION: 09/23/2024 CLINICAL: Routine screening. Family history of breast cancer. Comparison is made to exams dated: 09/21/2023 mammogram, 09/10/2022 mammogram, and 09/03/2021 mammogram - [facility]. The breasts are heterogeneously dense, which may obscure small masses (category c / 51-75% glandular tissue). Current study was also evaluated with a Computer Aided Detection (CAD) system. Bilateral breast implants are stable. No significant masses, calcifications, or other findings are seen in either breast. There has been no significant interval change. IMPRESSION: BENIGN There is no mammographic evidence of malignancy. A 1 year screening mammogram is recommended. Based on the Tyrer Cuzick model (a risk assessment model) the patient's lifetime risk is 1.1% and her 10 year risk is 0.0%. According to the ACR, ACS, and NCCN guidelines, an annual breast MRI exam along with mammogram is recommended if the patient's lifetime risk is 20% or greater. This exam was interpreted at Station ID: [id number]. NOTE: For mammograms, a report in lay terms will be sent to the patient. Approximately 15% of breast malignancies will not be visualized mammographically. In the management of a palpable breast mass, a negative mammogram must not discourage biopsy of a clinically suspicious lesion. Electronically Signed By: Erik dockery/junior:09/25/2024 13:31:47 letter sent: Normal Exam ACR BI-RADS Category 2: Benign
== END ==
LOC: MAMMO 10:54
PROVIDERS: PCP Family Medicine; Referring Provider Family Medicine; Visit Provider Family Medicine
DX: Z12.31 Encounter for screening mammogram for malignant neoplasm of breast (principal); Z80.3 Family history of malignant neoplasm of breast; R92.333 Mammographic heterogeneous density, bilateral breasts
CPT/HCPCS: 77063; 77067

== ENCOUNTER → 2025-08-03 12:47 | Outpatient (CLI) | payer MEDICARE, OTHER, SELFPAY ==
[2025-08-03 13:19] LABS: Alanine Aminotransferase 15 IU/L (<35); Albumin 4.5 g/dL (3.5-5.0); Albumin Globulin Ratio 1.6 (1.0-2.8); Alkaline Phosphatase 71 U/L (38-126); Blood Urea Nitrogen 12 mg/dL (7-17); Calcium 9.9 mg/dL (8.4-10.2); Carbon Dioxide 29 mmol/L (22-32); Chloride 98 mmol/L (98-107); Estimated Glomerular Filt Rate > 60 mL/min (>60); Globulin 2.8 g/dL (1.7-4.1); Glucose 92 mg/dL (70-99); HEMOLYSIS < 15 (0-50); Potassium 4.3 mmol/L (3.4-5.1); Sodium 135 mmol/L (137-145); Total Protein 7.3 g/dL (6.3-8.2)
[2025-08-03 13:48] LABS: Thyroid Stimulating Hormone 1.64 uIU/mL (0.47-4.68)
[2025-08-03 15:48] LABS: Microalbumi Creatinin Ratio Ur 19.0 ug/mg CR (<30)
== END ==
PROVIDERS: PCP Family Medicine; Referring Provider Family Medicine; Visit Provider Family Medicine
DX: E03.9 Hypothyroidism, unspecified (principal); I10 Essential (primary) hypertension
CPT/HCPCS: 36415; 80053; 82043; 82570; 84443

== ENCOUNTER → 2025-10-08 14:44 | Outpatient (CLI) | payer MEDICARE, OTHER, SELFPAY ==
--- NOTE | 2025-10-08 14:45 | DI.MG.S_ITS ---
MM screening mammo implant BI: 10/08/2025. BI-RADS: 2
== END ==
LOC: MAMMO 14:45
PROVIDERS: PCP Family Medicine; Referring Provider Family Medicine; Visit Provider Family Medicine
DX: Z12.31 Encounter for screening mammogram for malignant neoplasm of breast (principal); R92.333 Mammographic heterogeneous density, bilateral breasts; Z98.82 Breast implant status; Z80.3 Family history of malignant neoplasm of breast
CPT/HCPCS: 77063; 77067